=== PATIENT | female | born 1950 | race Caucasian/White ===

== ENCOUNTER → 2017-07-27 | Outpatient (CLI) | payer MEDICARE ==
[2017-07-27 09:21] VITALS: BP 147/85; PULSE 99; RESP 16; TEMP 96.2; BMI 24.3
--- NOTE | 2017-07-27 10:28 | P.HPOB ---
History of Present Illness H&P Date: 07/27/17 Chief Complaint: The patient is here for routine gynecologic exam. This is a 66-year-old with an LMP of 1997. The patient is here to establish with this office. Her last pelvic exam was in 2015. She states she developed some left lower quadrant abdominal pain about 2 weeks ago after lifting a heavy plant. The pain was mild for about 5 days and intermittent. She described it as a pulling type of a sensation. The discomfort tapered off and has been minimal over the past few days. Yesterday the last pelvic area felt achy. She denies any discomfort currently. She is otherwise without complaints. She denies any postmenopausal bleeding. Review of Systems She believes she has lost about 10 pounds over the last year. She is concerned about this. She states she is worried that she will continue to lose weight unexpectedly. She has been eating healthier and has been exercising regularly. She was previously taking iodine supplements as recommended by a health food store. She recently discontinued the iodine supplements last week since she thought this might have something to do with weight loss. She denies respiratory, cardiac, or G.I. problems. She denies maltreatment or falling. : she denies any significant problems with urinary leakage. 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 She did have 3 vaginal deliveries. 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 - Past Family History Father Family Medical History: No Reported History Additional Family Medical History / Comment(s): She denies family history of cancer of the breast, uterus, ovaries or colon. Medications and Allergies Home Medications Medication Instructions Recorded Confirmed Type Lisinopril-Hctz 10-12.5 mg DAILY 07/27/17 History [Zestoretic 10-12.5] Ranitidine HCl [Zantac] 07/27/17 History Allergies Allergy/AdvReac Type Severity Reaction Status Date / Time No Known Allergies Allergy Verified 07/27/17 10:18 Exam - Vital Signs Vital signs: Vital Signs Temp Pulse Resp BP 07/27/17 09:12 96.2 F L 99 16 147/85 Intake and Output 07/26/17 07/27/17 07/27/17 22:59 06:59 14:59 Other: Weight 66.224 kg Height 5'5", BMI 24.3. This is a well-developed well-nourished white female who is alert and oriented times 3 who appears mildly anxious, otherwise in no acute distress. HEENT: Within normal limits. NECK: Supple without mass or thyromegaly. CHEST AND LUNGS: Clear to auscultation. HEART: Regular rate and rhythm. BREASTS: Are without mass or discharge. AXILLARY EXAM: Negative for adenopathy. BACK: Negative for CVA tenderness. ABDOMEN: Soft, nontender, without palpable masses. PELVIC EXAM: Normal external genitalia with mild to moderate atrophy. Cervix and vagina appear normal with moderate atrophy. There is no unusual discharge. There is no evidence of prolapse. The uterus is midposition, nongravid size and nontender. There are no palpable adnexal masses or tenderness. RECTAL EXAM: rectovaginal exam is negative for mass or tenderness and is negative for occult blood. EXTREMITIES: Nontender. IMPRESSION: 1. 66-year-old menopausal female with normal gynecologic exam. 2. Two-week history of intermittent left lower quadrant and left pelvic pains. There are no significant physical findings at this time. Differential diagnosis will include muscular strain, ovarian abnormality, pelvic prolapse and non-gynecologic cause. 3. 10 pound weight loss over one year. The patient is concerned about this. This may be related to healthier eating and exercise, it also may be related to her iodine intake which she discontinued last week. She understands that the iodine may affect thyroid function and therefore may affect her metabolism. PLAN: 1. Pap smear was performed. 2. Self breast awareness was discussed. 3. Mammogram will be due in December 2017. An order slip was given to the patient for this. 4. Pelvic ultrasound will be done today. If this is unremarkable, her pain will be managed conservatively since it has been improving. 5. Patient has an appointment with Dr. Juan C Alonzo this week. She will discuss her concerns about weight loss with him. 6. I have recommended screening colonoscopy since she has never had this done. She states she will do this through Dr. Alonzo who has also recommended this. 7. She will return in one year and PRN.
--- NOTE | 2017-07-27 11:56 | US ---
EXAMINATION TYPE: US pelvis complete transvag DATE OF EXAM: 07/27/2017 COMPARISON: NONE CLINICAL HISTORY: 66-year-old female R10.2 PELVIC PAIN. Left pelvic pain for 2 weeks TECHNIQUE: Transabdominal sonographic images of the pelvis were acquired. Transvaginal sonographic i mages were medically necessary to better assess the following anatomy: uterus and ovaries Date of LMP: unknown FINDINGS: EXAM MEASUREMENTS: Uterus: 5.4 x 2.5 x 3.1 cm Endometrial Stripe: 0.2 cm Right Ovary: 2.3 x 2.3 x 2.1 cm Left Ovary: unable to visualize 1. Uterus: Anteverted. The myometrium is mildly heterogeneous. Cervical calcifications suggest seq uela of prior infection or instrumentation. Small cervical nabothian cyst measures 3 mm. Myometrial c alcification along the posterior fundus measures 6 mm. A more rounded 1.3 cm heterogeneous area along the posterior fundus suspected to represent a focal fibroid. This is primarily intramural but seems to have a submucosal component. 2. Endometrium: appears wnl 3. Right Ovary: 1.7 x 1.9 x 1.6cm dominant follicle or functional cyst. 4. Left Ovary: Obscured by overlying bowel gas 5. Bilateral Adnexa: prominent vascularity left adnexa 6. Posterior cul-de-sac: appears wnl IMPRESSION: 1. Suggestion of a 1.3 cm posterior fundal uterine fibroid. This is primarily intramural but seems to have a submucosal component. 2. Prominent vascularity at the left adnexa. This is nonspecific but can be seen in the setting of pe lvic congestion syndrome. 3. The left ovary could not be visualized.
== END | disposition home or self-care (01) ==
LOC: WWCWWP 08:40
PROVIDERS: ATTEND Obstetrics & Gynecology
DX: N94.89 Other specified conditions associated with female genital organs and menstrual cycle (principal); R10.32 Left lower quadrant pain; R10.9 Unspecified abdominal pain
CPT/HCPCS: 76830; 76856

== ENCOUNTER → 2017-08-05 | Outpatient (CLI) | payer MEDICARE ==
--- NOTE | 2017-08-05 14:25 | CT ---
EXAMINATION TYPE: CT abdomen w con DATE OF EXAM: 08/05/2017 HISTORY: Weight loss (13 pounds in 11 months) , Elevated Amylase CT DLP: 390.80mGycm Automated Exposure Control for Dose Reduction was Utilized. CONTRAST: CT scan of the abdomen and pelvis is performed with IV Contrast, patient injected with 100 ml mL of I sovue 300. COMPARISON: None. FINDINGS: LUNG BASES: No significant abnormality is appreciated. No focal consolidation. LIVER/GB: No focal hepatic masses identified. Gallbladder surgically absent. No intrahepatic biliary ductal dilatation. PANCREAS: No significant abnormality is seen. Pancreatic primary tumor enhances homogeneously without ductal dilatation. SPLEEN: No significant abnormality is seen. No splenomegaly. 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 ADRENALS: There is a left adrenal gland mass measuring 5.3 x 4.1 cm on series 3 image 27. Numerous in ternal dystrophic appearing coarse calcifications are seen. This is a heterogenous lesion with centra l hypoattenuation suggesting component of necrosis. There is mass effect upon the splenic vein. This abuts but is not contiguous with the left kidney. KIDNEYS: Kidneys enhance and excrete symmetrically without hydronephrosis. BOWEL: No significant abnormality is seen. No dilation. LYMPH NODES: No greater than 1cm abdominal or pelvic lymph nodes are appreciated. OSSEOUS STRUCTURES: L1 vertebral body hemangioma is seen. Mild multilevel degenerative changes of the visualized thoracolumbar. No suspicious osseous lesions. IMPRESSION: Heterogenous left adrenal gland mass measuring 5.3 cm suspicious for neoplasm and warranting percutan eous biopsy. Considerations are for adrenal cortical carcinoma, less likely retroperitoneal sarcoma, or metastasis. A Yellow level critical message alert has been initiated for Juan C Alonzo MD via the [employer] Critical Results System on 08/05/2017 2:22 PM. This message alert has been sent to Juan C abdi MD via the preferences provided by the clinician for the receipt of Radiology Critical Findings. Message ID [id number].
== END | disposition home or self-care (01) ==
LOC: RADCTMAIN 12:43
PROVIDERS: ATTEND Family Medicine
DX: E27.9 Disorder of adrenal gland, unspecified (principal); R63.4 Abnormal weight loss; R74.8 Abnormal levels of other serum enzymes; E78.4 Other hyperlipidemia
CPT/HCPCS: 74160; Q9967

== ENCOUNTER → 2017-08-23 | Outpatient (CLI) | payer MEDICARE ==
[~2017-08-23] MED LIST: SODIUM CHLORIDE 0.9% 500 ML in EMPTY BAG 1 BAG IV PRN
[2017-08-23 08:59] VITALS: BP 136/65; PULSE 103; RESP 16; TEMP 98.2
== END | disposition home or self-care (01) ==
LOC: PROCWHC3 08:39
PROVIDERS: ATTEND Internal Medicine Endocrinology, Diabetes & Metabolism
DX: E27.9 Disorder of adrenal gland, unspecified (principal)
CPT/HCPCS: 83835; 36415; G0463; 99211

== ENCOUNTER → 2017-09-21 | Outpatient (CLI) | payer MEDICARE | END | disposition home or self-care (01) | LOC: LABWHC1 08:59 | PROVIDERS: ATTEND Internal Medicine Endocrinology, Diabetes & Metabolism | DX: D35.00 Benign neoplasm of unspecified adrenal gland (principal) | CPT/HCPCS: 36415; 82088; 84244 ==

== ENCOUNTER → 2017-10-08 | Outpatient (CLI) | payer MEDICARE ==
--- NOTE | 2017-10-10 06:34 | PE ---
EXAMINATION TYPE: PET CT fusion skull to thigh DATE OF EXAM: 10/08/2017 COMPARISON: CT abdomen August 05, 2017. HISTORY: Adrenal Mass. Initial staging study. Abnormal CT. TECHNIQUE: Following the intravenous administration of 14.78 mCi of F-18 FDG, whole body images are performed from the skull base to the midthigh. Images are reviewed on the computer in the coronal, a xial, and sagittal planes. Reconstructed rotating images are created on independent workstation and reviewed on the computer. A noncontrast CT is performed in conjunction with the PET scan. SCAN: Initial Scan FINDINGS: SKULL BASE AND NECK: No suspicious hypermetabolic uptake is present. CHEST, MEDIASTINUM, AND HILAR REGION: No suspicious hypermetabolic uptake is seen ABDOMEN AND PELVIS: Redemonstration of heterogeneous partially calcified left adrenal mass measuring 5.1 x 4.5 cm axial image 119 grossly stable in size from recent CT. No suspicious hypermetabolic upta ke is identified. No areas of abnormal hypermetabolic uptake are seen in the abdomen or pelvis. OSSEOUS STRUCTURES: No suspicious hypermetabolic uptake is seen. OTHER CT: Coronary artery calcification is present which is noted marker for coronary artery disease. Cholecystectomy clips are noted. 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 There are a few scattered pelvic phleboliths. Hemangioma L1 level is seen. There is disc space narrowing with vacuum disc phenomenon L5-S1 level. S coliosis in thoracic spine is present. IMPRESSION: No suspicious hypermetabolic uptake in heterogeneous partially calcified left adrenal mas s. No areas of abnormal hypermetabolic uptake throughout remainder of body.
== END | disposition home or self-care (01) ==
LOC: RADPETMAIN 11:28
PROVIDERS: ATTEND Internal Medicine Endocrinology, Diabetes & Metabolism
DX: C74.02 Malignant neoplasm of cortex of left adrenal gland (principal)
CPT/HCPCS: 78815; A9552

== ENCOUNTER → 2017-10-10 | Outpatient (CLI) | payer MEDICARE ==
[2017-10-10 11:10] LABS: T4, Free (Free Thyroxine) 3.83 ng/dL (0.78-2.19)
== END | disposition home or self-care (01) ==
LOC: LABWHC1 10:03
PROVIDERS: ATTEND Internal Medicine Endocrinology, Diabetes & Metabolism
DX: E27.9 Disorder of adrenal gland, unspecified (principal); D35.00 Benign neoplasm of unspecified adrenal gland
CPT/HCPCS: 36415; 82626; 83498; 84403; 84439; 84443; 84481

== ENCOUNTER → 2017-10-26 | Outpatient (CLI) | payer MEDICARE ==
[2017-10-26 14:09] LABS: T4, Free (Free Thyroxine) 3.59 ng/dL (0.78-2.19)
== END | disposition home or self-care (01) ==
LOC: LABWHC1 13:07
PROVIDERS: ATTEND Internal Medicine Endocrinology, Diabetes & Metabolism
DX: E05.90 Thyrotoxicosis, unspecified without thyrotoxic crisis or storm (principal)
CPT/HCPCS: 36415; 84439; 84443; 84480

== ENCOUNTER → 2017-11-09 | Outpatient (CLI) | payer MEDICARE | END | disposition home or self-care (01) | LOC: LABWHC1 14:26 | PROVIDERS: ATTEND Internal Medicine Endocrinology, Diabetes & Metabolism | DX: E05.00 Thyrotoxicosis with diffuse goiter without thyrotoxic crisis or storm (principal) | CPT/HCPCS: 36415; 84439; 84443; 84480 ==

== ENCOUNTER → 2017-12-26 | Outpatient (CLI) | payer MEDICARE ==
[2017-12-26 17:45] LABS: Basophils % (A) 0 %; Eosinophils % (A) 1 %; HCT 37.2 % (34.0-46.0); HGB 12.4 gm/dL (11.4-16.0); Lymphocytes # (A) 0.9 k/uL (1.0-4.8); Lymphocytes % (A) 15 %; MCHC 33.3 g/dL (31.0-37.0); MCV 93.1 fL (80.0-100.0); Mean Platelet Volume 6.2; Monocytes # (A) 0.4 k/uL (0-1.0); Monocytes % (A) 6 %; Neutrophils # (A) 4.7 k/uL (1.3-7.7); Neutrophils % (A) 76 %; Platelet Count 309 k/uL (150-450); RDW 13.4 % (11.5-15.5); WBC 6.1 k/uL (3.8-10.6)
[2017-12-26 18:04] LABS: ALT 34 U/L (9-52); AST 32 U/L (14-36); Albumin 4.4 g/dL (3.5-5.0); Alkaline Phosphatase 192 U/L (38-126); Anion Gap 10 mmol/L; Blood Urea Nitrogen 14 mg/dL (7-17); Carbon Dioxide 23 mmol/L (22-30); Chloride 103 mmol/L (98-107); Glucose 96 mg/dL (74-99); Potassium 4.4 mmol/L (3.5-5.1); Sodium 136 mmol/L (137-145); Total Bilirubin 0.3 mg/dL (0.2-1.3); Total Protein 7.5 g/dL (6.3-8.2)
--- NOTE | 2017-12-26 20:23 | XR ---
EXAMINATION: XR chest 2V DATE AND TIME: 12/26/2017 4:46 PM CLINICAL INDICATION: Z01.818 pre op TECHNIQUE: PA and lateral COMPARISON: None. FINDINGS: The lungs are clear. The pleural spaces are negative. The cardiac silhouette is not enlarged. The remainder of the mediastinal silhouette is unremarkable. The skeletal structures and soft tissues are negative for acute findings. IMPRESSION: NO ACUTE PROCESS.
== END | disposition home or self-care (01) ==
LOC: RADXRMAIN 16:00
PROVIDERS: ATTEND Urology
DX: Z01.818 Encounter for other preprocedural examination (principal); E27.9 Disorder of adrenal gland, unspecified
CPT/HCPCS: 71046; 80053; 85025; 93005

== ENCOUNTER → 2017-12-28 | Outpatient (CLI) | payer MEDICARE ==
--- NOTE | 2017-12-29 11:12 | MM ---
Reason for exam: screening (asymptomatic). Last mammogram was performed 1 year ago. History: Patient is postmenopausal. MG discontinued stereo core RT of the right breast, June 25, 2015. Benign excisional biopsy, 2015. Benign excisional biopsy, July 15, 2000. Excisional biopsy. Physical Findings: A clinical breast exam by your physician is recommended on an annual basis and results should be correlated with mammographic findings. MG 3D Screening Mammo W/Cad Bilateral CC and MLO view(s) were taken. Prior study comparison: December 15, 2016, bilateral MG 3d screening mammo w/cad. December 10, 2015, bilateral MG 3d diag mammo w/cad JINA. The breast tissue is heterogeneously dense. This may lower the sensitivity of mammography. No suspicious abnormality. Post biopsy change on the right. No significant changes when compared with prior studies. ASSESSMENT: Benign, BI-RAD 2 RECOMMENDATION: Routine screening mammogram of both breasts in 1 year.
== END ==
LOC: RADMAMWWP 12:20
PROVIDERS: ATTEND Family Medicine
DX: Z12.31 Encounter for screening mammogram for malignant neoplasm of breast (principal)
CPT/HCPCS: 77063; 77067

== ENCOUNTER → 2017-12-31 | Outpatient (CLI) | payer MEDICARE ==
[2017-12-31 12:25] LABS: T4, Free (Free Thyroxine) 0.93 ng/dL (0.78-2.19)
== END | disposition home or self-care (01) ==
LOC: LABWHC1 10:36
PROVIDERS: ATTEND Internal Medicine Endocrinology, Diabetes & Metabolism
DX: E05.00 Thyrotoxicosis with diffuse goiter without thyrotoxic crisis or storm (principal)
CPT/HCPCS: 36415; 84439; 84443; 84480

== ENCOUNTER → 2018-02-07 | Outpatient (CLI) | payer MEDICARE ==
[2018-02-08 04:47] LABS: T4, Free (Free Thyroxine) 0.9 ng/dL (0.80-1.80)
== END | disposition home or self-care (01) ==
LOC: LABWHC1 15:50
PROVIDERS: ATTEND Internal Medicine Endocrinology, Diabetes & Metabolism
DX: E05.00 Thyrotoxicosis with diffuse goiter without thyrotoxic crisis or storm (principal)
CPT/HCPCS: 36415; 84439; 84443; 84480

== ENCOUNTER → 2018-07-24 | Outpatient (CLI) | payer MEDICARE ==
[2018-07-24 19:13] LABS: T4, Free (Free Thyroxine) 1.6 ng/dL (0.80-1.80)
== END ==
LOC: LABWHC1 12:36
PROVIDERS: ATTEND Internal Medicine Endocrinology, Diabetes & Metabolism
DX: E05.00 Thyrotoxicosis with diffuse goiter without thyrotoxic crisis or storm (principal)
CPT/HCPCS: 36415; 84439; 84443; 84480

== ENCOUNTER → 2018-08-16 | Outpatient (CLI) | payer MEDICARE | LOC: LABWHC1 11:35 | PROVIDERS: ATTEND Internal Medicine Endocrinology, Diabetes & Metabolism | DX: E05.00 Thyrotoxicosis with diffuse goiter without thyrotoxic crisis or storm (principal) | CPT/HCPCS: 36415; 84439; 84443; 84481 ==

== ENCOUNTER → 2018-10-19 | Outpatient (CLI) | payer MEDICARE ==
[2018-10-19 19:11] LABS: ALT 18 U/L (8-44); AST 25 U/L (13-35); African American GFR (CKD) 103.2 (60.0-200.0); Albumin/Globulin Ratio 1.95 (1.60-3.17); Alkaline Phosphatase 143 U/L (41-126); BUN/Creat Ratio 22.86 Ratio (12.00-20.00); Calcium 9.6 mg/dL (8.7-10.3); Chloride 102 mmol/L (96-109); Globulin 2.2 g/dL (1.6-3.3); Glucose 118 mg/dL (70-110); Potassium 4.6 mmol/L (3.5-5.5); Sodium 135 mmol/L (135-145); Total Bilirubin 0.4 mg/dL (0.3-1.2); Total Protein 6.5 g/dL (6.2-8.2)
== END ==
LOC: LABWHC1 10:23
PROVIDERS: ATTEND Internal Medicine Endocrinology, Diabetes & Metabolism
DX: E05.00 Thyrotoxicosis with diffuse goiter without thyrotoxic crisis or storm (principal)
CPT/HCPCS: 36415; 80053; 84439; 84443; 84480

== ENCOUNTER → 2019-01-02 | Outpatient (CLI) | payer MEDICARE ==
[2019-01-02 14:34] VITALS: BP 117/76; PULSE 87; RESP 18; TEMP 97.5; BMI 25.2
--- NOTE | 2019-01-02 15:37 | P.HPOB ---
History of Present Illness H&P Date: 01/02/19 Chief Complaint: The patient is here for her routine gynecologic exam and ma mmogram. This is a 68-year-old with an LMP of 1997. The patient is without gynecologic complaints and denies any postmenopausal bleeding. The patient had a Pap smear showing ASCUS on 07/27/2017. High-risk HPV testing was negative. Review of Systems She has gained about 5 pounds over the last year. She denies respiratory, cardiac and G.I. problems. She denies maltreatment or problems with falling. : she denies any significant problems with urinary leakage. 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 She did have 3 vaginal deliveries. History of Any Multi-Drug Resistant Organisms: None Reported Past Surgical History: Cholecystectomy, Tonsillectomy Additional Past Surgical History / Comment(s): Unilateral adrenal gland removal 2017(benign). Past Anesthesia/Blood Transfusion Reactions: No Reported Reaction Past Psychological History: No Psychological Hx Reported Smoking Status: Former smoker Past Alcohol Use History: Rare (1 or 2 per month) Additional Past Alcohol Use History / Comment(s): Quit smoking in the . Past Drug Use History: None Reported Additional History: She has been since 1997 and works at [employer] in [place]. - Past Family History Father Family Medical History: No Reported History Additional Family Medical History / Comment(s): She denies family history of cancer of the breast, uterus, ovaries or colon. Medications and Allergies Home Medications Medication Instructions Recorded Confirmed Type Lisinopril-Hctz 10-12.5 mg 1 tab PO DAILY 07/27/17 01/02/19 History [Zestoretic 10-12.5] Multivitamins, Thera [Multivitamin 1 tab PO DAILY 08/10/17 01/02/19 History (formulary)] Psyllium Husk (with Sugar) 2 tbsp PO DAILY 08/10/17 01/02/19 History [Metamucil Powder] Famotidine [Pepcid] 20 mg PO HS 01/02/19 01/02/19 History Methimazole 2.5 mg PO HS 01/02/19 01/02/19 History Allergies Allergy/AdvReac Type Severity Reaction Status Date / Time adhesive tape AdvReac Rash/Hives Unverified 01/02/19 14:34 Exam Vital Signs Temp Pulse Resp BP Pulse Ox 01/02/19 14:26 97.5 F L 87 18 117/76 100 Intake and Output 01/02/19 01/02/19 01/02/19 06:59 14:59 22:59 Other: Weight 68.946 kg Height 5 feet 5 inches, weight 152 pounds, BMI 25.3. This is a well-developed well-nourished white female who is alert and oriented times 3 in no acute distress. HEENT: Within normal limits. NECK: Supple without mass or thyromegaly. CHEST AND LUNGS: Clear to auscultation. HEART: Regular rate and rhythm. BREASTS: Are without mass or discharge. AXILLARY EXAM: Negative for adenopathy. BACK: Negative for CVA tenderness. ABDOMEN: Soft, nontender, without palpable masses. PELVIC EXAM: Normal external genitalia with mild to moderate atrophy. Cervix and vagina appear normal mild atrophy. There is no unusual discharge. There is a grade 2 cystocele and grade 2 uterine prolapse. There is a grade 1-2 rectocele. The uterus is midposition, nongravid size and nontender. There are no palpable adnexal masses or tenderness. RECTAL EXAM: Rectovaginal exam is negative for mass or tenderness and is negativ e for occult blood. EXTREMITIES: Nontender. IMPRESSION: 1. 68-year-old menopausal female with grade 2 cystocele and grade 2 uterine prolapse. Small rectocele. The prolapse is asymptomatic. 2. History of ASCUS Pap smear with negative high-risk HPV testing on 07/27/2017. PLAN: 1. Pap smear with high-risk HPV testing (cotest) was performed. 2. Self breast awareness was discussed with the patient. 3. Screening mammogram will be done today. 4. Osteoporosis prevention was discussed. I have stressed the importance of adequate calcium, vitamin D and regular exercise. Recommended amounts of calcium and vitamin D were also discussed. I have recommended bone density screening. She is not sure if she has ever had this done. She is declining bone density testing. She will call if she changes her mind. 5. He did receive her flu shot this fall. 6. She was advised to return in one year for her annual well woman exam.
--- NOTE | 2019-01-04 10:46 | MM ---
Reason for exam: screening (asymptomatic). Last mammogram was performed 1 year ago. History: Patient is postmenopausal. MG discontinued stereo core RT of the right breast, June 25, 2015. Benign excisional biopsy, 2015. Benign excisional biopsy, July 15, 2000. Excisional biopsy. Physical Findings: A clinical breast exam by your physician is recommended on an annual basis and results should be correlated with mammographic findings. MG 3D Screening Mammo W/Cad Bilateral CC and MLO view(s) were taken. Prior study comparison: December 28, 2017, bilateral MG 3d screening mammo w/cad. December 15, 2016, bilateral MG 3d screening mammo w/cad. There are scattered fibroglandular densities. No significant changes when compared with prior studies. ASSESSMENT: Benign, BI-RAD 2 RECOMMENDATION: Routine screening mammogram of both breasts in 1 year.
== END | disposition home or self-care (01) ==
LOC: WWCWWP 13:22
PROVIDERS: ATTEND Obstetrics & Gynecology
DX: Z12.31 Encounter for screening mammogram for malignant neoplasm of breast (principal)
CPT/HCPCS: 77063; 77067

== ENCOUNTER → 2019-01-18 | Outpatient (CLI) | payer MEDICARE ==
[2019-01-18 19:30] LABS: T4, Free (Free Thyroxine) 1.1 ng/dL (0.80-1.80)
== END | disposition home or self-care (01) ==
LOC: LABWHC1 12:36
PROVIDERS: ATTEND Internal Medicine Endocrinology, Diabetes & Metabolism
DX: E05.00 Thyrotoxicosis with diffuse goiter without thyrotoxic crisis or storm (principal)
CPT/HCPCS: 36415; 84439; 84443; 84480

== ENCOUNTER → 2020-11-11 | Outpatient (CLI) | payer MEDICARE ==
[2020-11-11 10:53] VITALS: BP 119/73; PULSE 95; RESP 18; TEMP 98.1
--- NOTE | 2020-11-11 12:09 | P.HPOB ---
History of Present Illness H&P Date: 11/11/20 Chief Complaint: The patient is here for her routine gynecologic exam and ma mmogram. This is a 78-year-old with an LMP of 1997. The patient has noticed a bulge from the vagina states she can touch and see a bulge. She denies any postmenopausal bleeding. Her last Pap smear cotest was negative on 01/02/2019. This was following an ASCUS Pap smear with negative high-risk HPV testing on 07/27/2017. Review of Systems Weight has been stable. She denies respiratory, cardiac and G.I. problems. She denies maltreatment or problems with falling. : she denies any significant problems with urinary leakage. 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 She did have 3 vaginal deliveries. History of Any Multi-Drug Resistant Organisms: None Reported Past Surgical History: Cholecystectomy, Tonsillectomy Additional Past Surgical History / Comment(s): Unilateral adrenal gland removal 2017(benign). Past Anesthesia/Blood Transfusion Reactions: No Reported Reaction Past Psychological History: No Psychological Hx Reported Smoking Status: Former smoker Past Alcohol Use History: None Reported Additional Past Alcohol Use History / Comment(s): Quit smoking in the 1970s. Past Drug Use History: None Reported Additional History: She has been since 1997 and is not sexually active. She is retired. - Past Family History Father Family Medical History: No Reported History Additional Family Medical History / Comment(s): She denies family history of cancer of the breast, uterus, ovaries or colon. Medications and Allergies Home Medications Medication Instructions Recorded Confirmed Type Lisinopril-Hctz 10-12.5 mg 1 tab PO DAILY 07/27/17 11/11/20 History [Zestoretic 10-12.5] Multivitamins, Thera [Multivitamin 1 tab PO DAILY 08/10/17 11/11/20 History (formulary)] Psyllium Husk (with Sugar) 2 tbsp PO DAILY 08/10/17 11/11/20 History [Metamucil Powder] Famotidine [Pepcid] 20 mg PO HS 01/02/19 11/11/20 History methIMAzole [Methimazole] 2.5 mg PO HS 01/02/19 11/11/20 History Allergies Allergy/AdvReac Type Severity Reaction Status Date / Time adhesive tape AdvReac Rash/Hives Unverified 11/11/20 10:43 Exam Vital Signs Temp Pulse Resp BP Pulse Ox 11/11/20 10:46 98.1 F 95 18 119/73 100 Intake and Output 11/10/20 11/11/20 11/11/20 22:59 06:59 14:59 Other: Weight 68.039 kg Height 5 feet 3 inches, weight 150 pounds, BMI 26.6. This is a well-developed well-nourished white female who is alert and oriented times 3 in no acute distress. HEENT: Within normal limits. NECK: Supple without mass or thyromegaly. CHEST AND LUNGS: Clear to auscultation. HEART: Regular rate and rhythm. BREASTS: Are without mass or discharge. AXILLARY EXAM: Negative for adenopathy. BACK: Negative for CVA tenderness. ABDOMEN: Soft, nontender, without palpable masses. PELVIC EXAM: External genitalia: A bulges protruding slightly through the introitus. The vulva reveals mild to moderate atrophy without lesions. Cervix and vagina reveals a grade 3-4 cystocele. The part of the cystocele that is protruding through the introitus does have slightly thickened mucosa with no ulceration or excoriation. There is no unusual discharge. There is also a grade 2 uterine prolapse with otherwise normal-appearing cervix. There is also a grade 2 rectocele noted. The uterus is midposition, atrophic nongravid size and nontender. There are no palpable adnexal masses or tenderness. RECTAL EXAM: Rectovaginal exam is negative for mass or tenderness and is negative for occult blood. The rectal exam does confirm a small rectocele. No significant enterocele is noted. EXTREMITIES: Nontender. IMPRESSION: 1. 70-year-old menopausal female with symptomatic grade 3-4 cystocele, grade 2 uterine prolapse and grade 2 rectocele. 2. Previous ASCUS Pap smear with negative high-risk HPV testing in 2017, followed by a negative Pap smear cotest in December 2018. PLAN: 1. Pap smear was deferred. If she does not have a hysterectomy for uterine prolapse, we will plan on repeating the Pap smear in 1 year because of the abnormal Pap smear done in 2018. 2. Self breast awareness was discussed with the patient. We have also discussed symptoms associated with inflammatory breast cancer. 3. Screening mammogram will be done today. 4. We have had a long discussion regarding her pelvic organ prolapse. I am recommending surgical correction for the symptomatic grade 3-4 cystocele which protrudes from the introitus. She will be referred to Dr. Schwartz for cystocele repair and possible vaginal hysterectomy with possible rectocele repair. The [employer] FAQ handouts on pelvic organ prolapse surgery and hysterectomy were given to the patient. 5. Osteoporosis prevention was discussed. I have stressed the importance of adequate calcium, vitamin D and regular exercise. Recommended amounts of calcium and vitamin D were also discussed. 6. Colorectal cancer screening has been discussed. She is declining colonoscopy at this time. She will discuss her options with her PCP. 7. She has completed her Covid vaccination series. 8. The patient was advised to return in 1-2 years for her well woman examination. If she does not have a hysterectomy, I have recommended that she return in 1 year and at that time we can repeat her Pap smear.
--- NOTE | 2020-11-13 10:16 | MM ---
Reason for exam: screening (asymptomatic). Last mammogram was performed 1 year and 10 months ago. History: Patient is postmenopausal. MG discontinued stereo core RT of the right breast, June 25, 2015. Benign excisional biopsy, 2015. Benign excisional biopsy, July 15, 2000. Excisional biopsy. Physical Findings: A clinical breast exam by your physician is recommended on an annual basis and results should be correlated with mammographic findings. MG 3D Screening Mammo W/Cad Bilateral CC and MLO view(s) were taken. Prior study comparison: January 02, 2019, bilateral MG 3d screening mammo w/cad. December 28, 2017, bilateral MG 3d screening mammo w/cad. There are scattered fibroglandular densities. No significant changes when compared with prior studies. ASSESSMENT: Benign, BI-RAD 2 RECOMMENDATION: Routine screening mammogram of both breasts in 1 year.
== END ==
LOC: WWCWWP 10:22
PROVIDERS: ATTEND Obstetrics & Gynecology
DX: Z12.31 Encounter for screening mammogram for malignant neoplasm of breast (principal); Z01.419 Encounter for gynecological examination (general) (routine) without abnormal findings; N81.4 Uterovaginal prolapse, unspecified; N81.6 Rectocele; I10 Essential (primary) hypertension; Z87.891 Personal history of nicotine dependence; Z79.899 Other long term (current) drug therapy; Z91.048 Other nonmedicinal substance allergy status
CPT/HCPCS: 77063; 77067

== ENCOUNTER → 2021-01-05 | Outpatient (CLI) | payer MEDICARE ==
--- NOTE | 2021-01-05 22:07 | MR ---
EXAMINATION TYPE: MR brain wo con DATE OF EXAM: 01/05/2021 COMPARISON: None HISTORY: Cerebrovascular disease, unspecified. Forgetfulness. CONTRAST: Performed utilizing 0 mL intravenous Gadavist gadolinium contrast. TECHNIQUE: Multiplanar, multiecho imaging on a 3.0 Lalitha magnet is performed through the brain. Stud y is performed within 24 hours of arrival to the hospital. The craniovertebral junction is normal. The pituitary is normal. Diffusion-weighted imaging is performed. No abnormal hyperintensity is present to suggest an acute i ntracranial infarct or acute ischemic change. There is a 0.5 cm right centrum semiovale subcortical hyperintensity. Microvascular ischemic change, vasculitis, migraine headache could be considered. Ventricles and sulci are somewhat prominent for the patient age. IMPRESSIONS: 1. Atrophy. 2. White matter change in the right centrum semiovale not portion of the patient's age.
== END | disposition home or self-care (01) ==
LOC: RADMRIMAIN 14:41
PROVIDERS: ATTEND Psychiatry & Neurology Neurology
DX: G31.9 Degenerative disease of nervous system, unspecified (principal); R90.82 White matter disease, unspecified
CPT/HCPCS: 70551

== ENCOUNTER → 2021-01-08 | Outpatient (CLI) | payer MEDICARE ==
[2021-01-09 00:19] LABS: T4, Free (Free Thyroxine) 1.45 ng/dL (0.800-1.800)
== END | disposition home or self-care (01) ==
LOC: LABWHC1 13:01
PROVIDERS: ATTEND Internal Medicine Endocrinology, Diabetes & Metabolism
DX: E05.00 Thyrotoxicosis with diffuse goiter without thyrotoxic crisis or storm (principal)
CPT/HCPCS: 36415; 84439; 84443; 84480

== ENCOUNTER → 2021-11-17 | Outpatient (CLI) | payer MEDICARE ==
[2021-11-17 10:48] VITALS: BP 107/71; PULSE 99; RESP 16; TEMP 98.2
--- NOTE | 2021-11-17 12:31 | P.HPOB ---
History of Present Illness H&P Date: 11/17/21 Chief Complaint: The patient is here for her routine gynecologic exam and ma mmogram. This is a 71-year-old with an LMP of 1997. The patient denies any postmenopausal bleeding. She had some known vaginal prolapse. She does notice something protruding from the vagina but this is not very bothersome to her. She was referred to [facility] for evaluation and possible surgery for the prolapse. At that time last year, she chose conservative management. Review of Systems The patient's weight has been stable over the last year. She denies respiratory, cardiac, or G.I. problems. 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 She did have 3 vaginal deliveries. History of Any Multi-Drug Resistant Organisms: None Reported Past Surgical History: Cholecystectomy, Tonsillectomy Additional Past Surgical History / Comment(s): Unilateral adrenal gland removal 2017(benign). Past Anesthesia/Blood Transfusion Reactions: No Reported Reaction Past Psychological History: No Psychological Hx Reported Smoking Status: Former smoker Past Alcohol Use History: None Reported Additional Past Alcohol Use History / Comment(s): Quit smoking in the . Past Drug Use History: None Reported Additional History: She has been since 1997 and is not sexually active. She is retired. - Past Family History Father Family Medical History: No Reported History Additional Family Medical History / Comment(s): She denies family history of cancer of the breast, uterus, ovaries or colon. Medications and Allergies Home Medications Medication Instructions Recorded Confirmed Type Lisinopril-Hctz 10-12.5 mg 1 tab PO DAILY 07/27/17 11/17/21 History [Zestoretic 10-12.5] Multivitamins, Thera [Multivitamin 1 tab PO DAILY 08/10/17 11/17/21 History (formulary)] Psyllium Husk (with Sugar) 2 tbsp PO DAILY 08/10/17 11/17/21 History [Metamucil Powder] Famotidine [Pepcid] 20 mg PO HS 01/02/19 11/17/21 History methIMAzole [Methimazole] 2.5 mg PO HS 01/02/19 11/17/21 History Allergies Allergy/AdvReac Type Severity Reaction Status Date / Time adhesive tape AdvReac Rash/Hives Unverified 11/17/21 10:32 Exam Vital Signs Temp Pulse Resp BP Pulse Ox 11/17/21 10:33 98.2 F 99 16 107/71 98 Intake and Output 11/16/21 11/17/21 11/17/21 22:59 06:59 14:59 Other: Weight 68.039 kg Height 5 feet 3 inches, weight 150 pounds, BMI 26.6. This is a well-developed well-nourished white female who is alert and oriented times 3 in no acute distress. HEENT: Within normal limits. NECK: Supple without mass or thyromegaly. CHEST AND LUNGS: Clear to auscultation. HEART: Regular rate and rhythm. BREASTS: Are without mass or discharge. AXILLARY EXAM: Negative for adenopathy. BACK: Negative for CVA tenderness. ABDOMEN: Soft, nontender, without palpable masses. PELVIC EXAM: External genitalia reveals mild to moderate atrophy with a noted mucosal protrusion measuring approximately 4 x 2 cm and this is consistent with a grade 4 cystocele. The mucosa overlying the protruding cystocele is slightly thickened without excoriation or ulceration. There is a grade 2 uterine prolapse which protrudes to the introitus with Valsalva. Cervix and vagina appear normal . There is no unusual discharge. There is also a grade 2 rectocele noted. The uterus is midposition, nongravid size and nontender. There are no palpable adnexal masses or tenderness. RECTAL EXAM: Rectovaginal exam is negative for mass or tenderness and is negative for occult blood. EXTREMITIES: Nontender. IMPRESSION: 1. 71-year-old menopausal female with a grade 4 cystocele and grade 3 uterine prolapse which is slightly greater than her exam last year. This is minimally symptomatic to the patient. 2. Previous ASCUS Pap smear with negative high-risk HPV testing in 2018. 2019 Pap smear cotest was negative. PLAN: 1. Pap smear cotest was performed. If this is negative, we will plan on discontinuing Pap smears. 2. Self breast awareness was discussed with the patient. We have also discussed symptoms associated with inflammatory breast cancer. 3. Ringing mammogram will be done today. 4. Osteoporosis prevention was discussed. I have stressed the importance of a dequate calcium, vitamin D and regular exercise. Recommended amounts of calcium and vitamin D were also discussed. The patient states she believes she had a bone density test done last year through her PCP. I do not see a record of this at [facility]. It was probably done elsewhere. She will continue to follow up with her PCP regarding bone density testing. 5. She has completed her Covid vaccination series and has received a booster. 6. We have had a long discussion regarding her pelvic prolapse. We have discussed options including surgical correction, pessary use and conservative management. Because the cystocele is a grade 4 cystocele with some thickening of the mucosa overlying the cystocele, I have recommended that she look into surgical correction. She would like to be referred to Dr. Schwartz for this. I will make the referral. 7. She was advised to return in one year for her annual well woman exam and as needed.
--- NOTE | 2021-11-18 14:03 | MM ---
Reason for Exam: Screening (asymptomatic). Last mammogram was performed 1 year(s) and 1 month(s) ago. Patient History: Menarche at age 13. First Full-Term at age 19. Postmenopausal. Excisional Biopsy. Benign Excisional Biopsy. Benign Excisional Biopsy. 06/25/2015, MG discontinued stereo core RT on the right side. Risk Values: Mildred 5 year model risk: 1.9%. NCI Lifetime model risk: 5.2%. Prior Study Comparison: 12/28/2017 Bilateral Screening Mammogram, [facility]. 01/02/2019 Bilateral Screening Mammogram, [facility]. 11/11/2020 Bilateral Screening Mammogram, [facility]. Tissue Density: The breast tissue is extremely dense which could obscure a lesion on mammography. Findings: Analyzed By CAD. New nodular density outer right CC view, zone B/C. This finding is changed when compared with previous exams. Overall Assessment: Incomplete: need additional imaging evaluation, BI-RAD 0 Management: Diagnostic Mammogram of the right breast. A clinical breast exam by your physician is recommended on an annual basis and results should be correlated with mammographic findings. [facility] will attempt to contact patient to return for supplemental views. Electronically signed and approved by: Garrett Ramírez M.D. Radiologis
== END ==
LOC: WWCWWP 10:14
PROVIDERS: ATTEND Obstetrics & Gynecology
DX: Z12.31 Encounter for screening mammogram for malignant neoplasm of breast (principal); Z01.419 Encounter for gynecological examination (general) (routine) without abnormal findings; N81.4 Uterovaginal prolapse, unspecified; I10 Essential (primary) hypertension; Z87.891 Personal history of nicotine dependence; Z91.048 Other nonmedicinal substance allergy status; Z78.0 Asymptomatic menopausal state
CPT/HCPCS: 77063; 77067

== ENCOUNTER → 2021-11-19 | Outpatient (CLI) | payer MEDICARE ==
--- NOTE | 2021-11-19 11:32 | MM ---
Reason for Exam: Additional evaluation requested from abnormal screening. Last screening mammogram was performed less than 1 month ago. Patient History: Menarche at age 13. First Full-Term at age 19. Postmenopausal. Excisional Biopsy. Benign Excisional Biopsy. Benign Excisional Biopsy. 06/25/2015, MG discontinued stereo core RT on the right side. Risk Values: Mildred 5 year model risk: 1.9%. NCI Lifetime model risk: 5.2%. Tissue Density: Right: There are scattered fibroglandular densities. Findings: Analyzed By CAD. The upper outer quadrant focal asymmetry disperses on additional views. Overall Assessment: Negative, BI-RAD 1 Management: Screening Mammogram of both breasts in 1 year. A clinical breast exam by your physician is recommended on an annual basis and results should be correlated with mammographic findings. This exam should not preclude additional follow-up of suspicious palpable abnormalities. Results were given to the patient verbally at the time of exam. Electronically signed and approved by: Mike Jordan M.D. Radiologist
== END | disposition home or self-care (01) ==
LOC: RADMAMWWP 09:34
PROVIDERS: ATTEND Obstetrics & Gynecology
DX: R92.8 Other abnormal and inconclusive findings on diagnostic imaging of breast (principal); Z78.0 Asymptomatic menopausal state; Z98.890 Other specified postprocedural states
CPT/HCPCS: 77065; G0279; 77061

== ENCOUNTER → 2023-01-10 | Outpatient (CLI) | payer MEDICARE ==
[2023-01-10 16:21] LABS: ALT 16 U/L (8-44); AST 28 U/L (13-35); Albumin 4.8 d/dL (3.8-4.9); Albumin/Globulin Ratio 1.71 Ratio (1.60-3.17); Alkaline Phosphatase 128 U/L (41-126); Blood Urea Nitrogen 16.2 mg/dL (9.0-27.0); Calcium 10.7 mg/dL (8.7-10.3); Chloride 98 mmol/L (96-109); Globulin 2.8 d/dL (1.6-3.3); Glucose 92 mg/dL (70-110); Sodium 137 mmol/L (135-145); T4, Free (Free Thyroxine) 1.18 ng/dL (0.80-1.80); Total Bilirubin 0.4 mg/dL (0.3-1.2); Total Protein 7.6 d/dL (6.2-8.2)
== END | disposition home or self-care (01) ==
LOC: LABWHC1 10:50
PROVIDERS: ATTEND Internal Medicine Endocrinology, Diabetes & Metabolism
DX: E05.00 Thyrotoxicosis with diffuse goiter without thyrotoxic crisis or storm (principal)
CPT/HCPCS: 36415; 80053; 84439; 84443; 84480

== ENCOUNTER → 2023-09-19 | Outpatient (CLI) | payer MEDICARE ==
[2023-09-19 21:03] LABS: T4, Free (Free Thyroxine) 1.3 ng/dL (0.80-1.80)
== END | disposition home or self-care (01) ==
LOC: LABWHC1 13:13
PROVIDERS: ATTEND Internal Medicine Endocrinology, Diabetes & Metabolism
DX: E05.00 Thyrotoxicosis with diffuse goiter without thyrotoxic crisis or storm (principal)
CPT/HCPCS: 36415; 84439; 84443; 84480

== ENCOUNTER → 2023-12-08 | Outpatient (CLI) | payer MEDICARE ==
--- NOTE | 2023-12-11 09:47 | MM ---
Reason for Exam: Screening (asymptomatic). Last screening mammogram was performed 12 month(s) ago. Patient History: Menarche at age 13. First Full-Term at age 19. Postmenopausal. Excisional Biopsy. Benign Excisional Biopsy. Benign Excisional Biopsy. 06/25/2015, MG discontinued stereo core RT on the right side. Risk Values: Mildred 5 year model risk: 1.9%. NCI Lifetime model risk: 4.7%. Prior Study Comparison: 11/17/2021 Bilateral MG 3D screening mammo w/cad, [facility]. 11/19/2021 Right MG 3D work up w/cad RT, [facility]. 11/24/2022 Bilateral MG 3D screening mammo w/cad, [facility]. Tissue Density: There are scattered areas of fibroglandular density. Findings: Analyzed By CAD. The pattern is symmetrical. No significant interval change is evident. Benign coarse calcifications within the right breast. No suspicious groups of microcalcifications, spiculated or lobular masses, architectural distortion or other secondary signs of malignancy are mammographically apparent. Overall Assessment: Benign, BI-RAD 2 Management: Screening Mammogram of both breasts in 1 year. A negative mammogram report should not preclude additional follow up of suspicious palpable abnormalities. Patient should continue monthly self breast exam. A clinical breast exam by your physician is recommended on an annual basis and results should be correlated with mammographic findings. Note on Mildred scores and lifetime risk: 1. A Mildred score greater than 3% is considered moderate risk. If this is the case, consider specialist referral to assess eligibility for a risk reducing agent. 2. If overall lifetime risk for the development of breast cancer is 20% or higher, the patient may qualify for future screening with alternating mammogram and breast MRI. [facility], , 12/11/2023 9:44 AM. Electronically signed and approved by: Edwin Haddad D.O. Radiologis
== END | disposition home or self-care (01) ==
LOC: RADMAMWWP 10:54
PROVIDERS: ATTEND Family Medicine
CPT/HCPCS: 77063; 77067

== ENCOUNTER → 2024-09-12 | Outpatient (CLI) | payer MEDICARE ==
[2024-09-13 02:24] LABS: T4, Free (Free Thyroxine) 0.99 ng/dL (0.80-1.80)
== END | disposition home or self-care (01) ==
LOC: LABWHC1 15:57
PROVIDERS: ATTEND Internal Medicine Endocrinology, Diabetes & Metabolism
DX: E05.90 Thyrotoxicosis, unspecified without thyrotoxic crisis or storm (principal)
CPT/HCPCS: 36415; 84439; 84443; 84480